=== PATIENT | male | born 2005 | race Caucasian/White ===

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

== ENCOUNTER 2023-08-22 05:32 | Outpatient (CLI) | payer BC, SELFPAY ==
[2023-08-23 13:21] LABS: Hemoglobin S Screen Negative (Negative)
== END 2023-08-22 05:33 | disposition home or self-care (01) ==
LOC: LBO 05:32
PROVIDERS: PCP Pediatrics; Visit Provider Pediatrics
DX: J06.9 Acute upper respiratory infection, unspecified (principal)
CPT/HCPCS: 36415; 85660